=== PATIENT | female | born 1955 | race Caucasian/White ===

== ENCOUNTER 2023-02-05 15:47 | Emergency (ER) | payer MEDICARE ==
[~2023-02-05] VITALS: Ht 177.8 cm; Wt 58.6 kg
[2023-02-05 15:48] VITALS: BP 156/92; PULSE 80; RESP 16; TEMP 98.3; O2SAT 99
[2023-02-05] MEDS ORDERED: CLIN150C2 PO (18:15)
== END 2023-02-05 18:23 | disposition home or self-care (01) ==
LOC: ER 15:47
DX: L03.115 Cellulitis of right lower limb (principal); Z79.899 Other long term (current) drug therapy
CPT/HCPCS: 99283